=== PATIENT | female | born 1955 | race Hispanic/Latino ===

== ENCOUNTER 2018-11-11 09:50 | Emergency (ER) | payer OTHER ==
[2018-11-11 11:48] LABS: BASOPHILS % (AUTO) 1.3 % (0.0-5.0); EOSINOPHILS % (AUTO) 1.1 % (0.0-8.0); HEMATOCRIT 39.4 % (36-48); LYMPHOCYTES % (AUTO) 23.7 % (21.0-51.0); MEAN CORPUSCULAR HEMOGLOBIN 28.4 pg (27.0-33.0); MEAN CORPUSCULAR HGB CONC 33.2 g/dL (32.0-36.0); MEAN CORPUSCULAR VOLUME 85.5 fL (79-99); MONOCYTES % (AUTO) 7.2 % (3.0-13.0); NEUTROPHILS % (AUTO) 66.7 % (40.0-77.0); PLATELET COUNT (AUTO) 307 K/uL (130-400); RED BLOOD CELL COUNT(AUTO) 4.61 MIL/uL (4.00-5.50); RED CELL DISTRIBUTION WIDTH 15.7 % (11.0-15.5); WHITE BLOOD COUNT (AUTO) 10.5 K/uL (4.8-10.8)
[2018-11-11 11:54] LABS: CREATININE 0.6 mg/dL (0.5-1.5); POTASSIUM 3.8 mmol/L (3.5-5.1)
[2018-11-11 12:04] LABS: ALBUMIN 3.3 g/dL (3.5-5.0); BILIRUBIN,TOTAL 0.5 mg/dL (0.2-1.0); INR 0.89 (0.85-1.15); PARTIAL THROMBOPLASTIN TIME 29.2 SEC (26.3-35.5); PROTHROMBIN TIME 9.4 SEC (9.6-11.6); TOTAL PROTEIN, SERUM 7.1 g/dL (6.0-8.3)
[2018-11-11 12:49] LABS: APPEARANCE,URINE Clear (CLEAR); BILIRUBIN,URINE Negative (NEGATIVE); COLOR,URINE Yellow (YELLOW); GLUCOSE, URINE (UA) Negative (NEGATIVE); KETONES,URINE Negative (NEGATIVE); LEUKOCYTE ESTERASE ,URINE Negative (NEGATIVE); NITRATE,URINE Negative (NEGATIVE); OCCULT BLOOD,URINE Negative (NEGATIVE); PROTEIN,URINE Negative (NEGATIVE); UROBILINOGEN,URINE 0.2 mg/dL (0.2-1.0)
== END 2018-11-11 12:58 | disposition home or self-care (01) ==
LOC: EDH 09:50
DX: N95.0 Postmenopausal bleeding (principal); E11.9 Type 2 diabetes mellitus without complications; E78.5 Hyperlipidemia, unspecified; I10 Essential (primary) hypertension; Z90.49 Acquired absence of other specified parts of digestive tract
CPT/HCPCS: 36415; 76856; 80053; 81003; 84702; 85025; 85610; 85730

== ENCOUNTER 2019-07-18 11:13 | Inpatient (IN) | payer OTHER ==
[~2019-07-18] VITALS: Ht 154.9 cm; Wt 106.3 kg
[2019-07-18 11:47] LABS: CREATININE 0.7 mg/dL (0.5-1.5); POTASSIUM 3.7 mmol/L (3.5-5.1)
[2019-07-18 11:49] LABS: BASOPHILS % (AUTO) 0.5 % (0.0-5.0); EOSINOPHILS % (AUTO) 0.6 % (0.0-8.0); HEMATOCRIT 36.7 % (36-48); LYMPHOCYTES % (AUTO) 18.2 % (21.0-51.0); MEAN CORPUSCULAR HEMOGLOBIN 24.7 pg (27.0-33.0); MEAN CORPUSCULAR HGB CONC 30.8 g/dL (32.0-36.0); MEAN CORPUSCULAR VOLUME 80.1 fL (79-99); MONOCYTES % (AUTO) 7.4 % (3.0-13.0); NEUTROPHILS % (AUTO) 73.1 % (40.0-77.0); PLATELET COUNT (AUTO) 390 K/uL (130-400); RED BLOOD CELL COUNT(AUTO) 4.58 MIL/uL (4.00-5.50); RED CELL DISTRIBUTION WIDTH 16.9 % (11.0-15.5)
[2019-07-18 11:55] LABS: INR 0.93 (0.85-1.15); PROTHROMBIN TIME 9.8 SEC (9.6-11.6)
[2019-07-18] MEDS ORDERED: SODIUM CHLORIDE 0.9% 500ML 500 ML IV ONE (12:12)
[2019-07-18] MEDS ORDERED: MECLIZINE HCL 25 MG TABLET ONE (13:25)
[2019-07-18] MEDS ORDERED: SODIUM CHLORIDE 0.9% 1000ML 1,000 ML IV ONE (13:26)
[2019-07-18] MEDS ORDERED: ONDANSETRON HCL 4 MG/2 ML VIAL IVP PRN (15:15)
[2019-07-18] MEDS ORDERED: ACETAMINOPHEN 325 MG TAB PO PRN (15:15)
[2019-07-18] MEDS ORDERED: SODIUM CHLORIDE 0.9% 1000ML 1,000 ML IV SCH (19:00)
[2019-07-18 19:45] VITALS: BP 151/80
[2019-07-18] MEDS: SODIUM CHLORIDE 0.9% 1000ML 1,000 ML IV SCH (20:00)
[2019-07-18] MEDS: FAMOTIDINE/PF 20 MG/2 ML VIAL IV SCH (22:00)
[2019-07-19] VITALS: BP 144/69
[2019-07-19] MEDS ORDERED: METH500T6 PO ×2 (01:44)
[2019-07-19] MEDS ORDERED: METF-446 PO ×2 (01:44)
[2019-07-19] MEDS ORDERED: AMLO5TAB9 PO ×2 (01:44)
[2019-07-19] MEDS ORDERED: ASCO-512 PO ×2 (01:44)
[2019-07-19] MEDS ORDERED: METO-391 PO ×2 (01:44)
[2019-07-19 04:00] VITALS: BP 145/80
[2019-07-19] MEDS: SODIUM CHLORIDE 0.9% 1000ML 1,000 ML IV SCH ×2 (04:35→20:19)
[2019-07-19 05:52] LABS: BASOPHILS % (AUTO) 0.5 % (0.0-5.0); EOSINOPHILS % (AUTO) 1.5 % (0.0-8.0); HEMATOCRIT 33.5 % (36-48); LYMPHOCYTES % (AUTO) 24.8 % (21.0-51.0); MEAN CORPUSCULAR HEMOGLOBIN 24.7 pg (27.0-33.0); MEAN CORPUSCULAR HGB CONC 30.7 g/dL (32.0-36.0); MEAN CORPUSCULAR VOLUME 80.3 fL (79-99); MONOCYTES % (AUTO) 8.7 % (3.0-13.0); NEUTROPHILS % (AUTO) 64.1 % (40.0-77.0); PLATELET COUNT (AUTO) 373 K/uL (130-400); RED BLOOD CELL COUNT(AUTO) 4.17 MIL/uL (4.00-5.50); RED CELL DISTRIBUTION WIDTH 17.1 % (11.0-15.5)
[2019-07-19 06:01] LABS: CREATININE 0.7 mg/dL (0.5-1.5)
--- NOTE | 2019-07-19 06:20 | NUR ---
Paged Dr. Fitzgerald regarding potassium level of 3. Pending call back
[2019-07-19 07:55] VITALS: BP 169/88
[2019-07-19] MEDS: FAMOTIDINE/PF 20 MG/2 ML VIAL IV SCH ×2 (08:37→20:19)
[2019-07-19] MEDS: ENOXAPARIN SODIUM 30 MG/0.3 ML SQ SCH (08:38)
[2019-07-19] MEDS ORDERED: POTASSIUM CHLORIDE 20MEQ/100ML 100 ML IV PRN (09:45)
[2019-07-19] MEDS ORDERED: POTASSIUM CHLORIDE 10% ELIXIR 20 MEQ/15 ML UDCUP PO PRN (09:45)
[2019-07-19 11:18] VITALS: BP 151/65
[2019-07-19] MEDS ORDERED: LIDOCAINE HCL-MPF 1% 2ML VIAL ONE (14:40)
[2019-07-19] MEDS: POTASSIUM CHLORIDE 20MEQ/100ML 100 ML IV PRN ×2 (14:51→20:19)
[2019-07-19] MEDS: POTASSIUM CHLORIDE 20 MEQ ERTAB PO PRN (14:54)
--- NOTE | 2019-07-19 15:40 | NUR ---
DR. TOM IN TO SEE PT. REMOVED SUTURES FROM SURGICAL WOUND OF 1 MONTH AGO. 1 SMALL AREA OPEN AND WAS COVERED WITH 4X4 BY WOUND CARE NURSE.
[2019-07-19 16:35] VITALS: BP 180/98
--- NOTE | 2019-07-19 17:00 | NUR ---
[facility] CONSULT PATIENT ASSESSED REQUESTED: PATIENT PRESENTS WITH DEHISCED SURGICAL WOUND TO LEFT SIDE ABDOMEN; REMAINING SUTURES REMOVED BY DR. Chiquis TOM WITHOUT INCIDENT; [facility] RECOMMENDATIONS SUBMITTED. Addendum: 07/20/19 at 0839 by JER HEART LVN LVN W Amended: Links added.
--- NOTE | 2019-07-19 17:47 | NUR ---
INITIAL Patient lives with spouse. Emergency contact are daughters: Dee Kenneth, [phone] and Susy Morgannandez, [phone]. No home services. DME: glucometer (no insulin) and BPM. Patient is able to complete ADL's independently and drives. PCP is Dr. Jose Cooper. Pharmacy is [facility] located in [place]. DCP is home. Addendum: 07/19/19 at 1749 by DANYA ROSAS SS Amended: Links added.
[2019-07-19 20:00] VITALS: BP 144/78
[2019-07-20] VITALS: BP 122/67
[2019-07-20 04:00] VITALS: BP 145/72
[2019-07-20 06:02] LABS: BASOPHILS % (AUTO) 0.7 % (0.0-5.0); EOSINOPHILS % (AUTO) 2.6 % (0.0-8.0); HEMATOCRIT 33.2 % (36-48); LYMPHOCYTES % (AUTO) 33.8 % (21.0-51.0); MEAN CORPUSCULAR HEMOGLOBIN 25.1 pg (27.0-33.0); MEAN CORPUSCULAR HGB CONC 31.3 g/dL (32.0-36.0); MEAN CORPUSCULAR VOLUME 80.2 fL (79-99); MONOCYTES % (AUTO) 9.9 % (3.0-13.0); NEUTROPHILS % (AUTO) 52.7 % (40.0-77.0); PLATELET COUNT (AUTO) 364 K/uL (130-400); RED BLOOD CELL COUNT(AUTO) 4.14 MIL/uL (4.00-5.50); RED CELL DISTRIBUTION WIDTH 17.2 % (11.0-15.5); WHITE BLOOD COUNT (AUTO) 7.6 K/uL (4.8-10.8)
[2019-07-20 06:20] LABS: ALBUMIN 2.6 g/dL (3.5-5.0); BILIRUBIN,TOTAL 0.6 mg/dL (0.2-1.0); CREATININE 0.7 mg/dL (0.5-1.5); POTASSIUM 3.5 mmol/L (3.5-5.1); TOTAL PROTEIN, SERUM 6.6 g/dL (6.0-8.3)
[2019-07-20] MEDS: POTASSIUM CHLORIDE 20 MEQ ERTAB PO PRN ×2 (07:00→10:00)
[2019-07-20 07:15] VITALS: BP 156/84
[2019-07-20] MEDS: SODIUM CHLORIDE 0.9% 1000ML 1,000 ML IV SCH ×2 (07:15→20:02)
[2019-07-20] MEDS: METOPROLOL SUCCINATE 50 MG TAB.SR.24H PO SCH (09:00)
[2019-07-20] MEDS: AMLODIPINE BESYLATE 5 MG TAB PO SCH (09:00)
[2019-07-20] MEDS: FAMOTIDINE/PF 20 MG/2 ML VIAL IV SCH ×2 (09:58→20:02)
[2019-07-20] MEDS: ASCORBIC ACID 500 MG TAB PO SCH (09:59)
[2019-07-20] MEDS: ENOXAPARIN SODIUM 30 MG/0.3 ML SQ SCH (10:00)
[2019-07-20 12:29] VITALS: BP 138/83
[2019-07-20 16:11] VITALS: BP 157/64
[2019-07-20 20:01] VITALS: BP 150/71
[2019-07-21] VITALS: BP 118/61
[2019-07-21 03:48] VITALS: BP 131/69
[2019-07-21 05:22] LABS: BASOPHILS % (AUTO) 0.5 % (0.0-5.0); EOSINOPHILS % (AUTO) 2.3 % (0.0-8.0); HEMATOCRIT 32.6 % (36-48); MEAN CORPUSCULAR HEMOGLOBIN 24.8 pg (27.0-33.0); MEAN CORPUSCULAR VOLUME 79.9 fL (79-99); MONOCYTES % (AUTO) 8.7 % (3.0-13.0); NEUTROPHILS % (AUTO) 62.3 % (40.0-77.0); PLATELET COUNT (AUTO) 347 K/uL (130-400); RED BLOOD CELL COUNT(AUTO) 4.08 MIL/uL (4.00-5.50); RED CELL DISTRIBUTION WIDTH 17.1 % (11.0-15.5); WHITE BLOOD COUNT (AUTO) 8.7 K/uL (4.8-10.8)
[2019-07-21 05:43] LABS: ALBUMIN 2.6 g/dL (3.5-5.0); BILIRUBIN,TOTAL 0.4 mg/dL (0.2-1.0); CREATININE 0.6 mg/dL (0.5-1.5); POTASSIUM 3.3 mmol/L (3.5-5.1); TOTAL PROTEIN, SERUM 6.3 g/dL (6.0-8.3)
[2019-07-21] MEDS: POTASSIUM CHLORIDE 20 MEQ ERTAB PO PRN ×3 (06:50→12:40)
[2019-07-21 08:00] VITALS: BP 131/55
[2019-07-21] MEDS: AMLODIPINE BESYLATE 5 MG TAB PO SCH (09:00)
[2019-07-21] MEDS: METOPROLOL SUCCINATE 50 MG TAB.SR.24H PO SCH (09:00)
[2019-07-21] MEDS: FAMOTIDINE/PF 20 MG/2 ML VIAL IV SCH ×2 (09:00→21:00)
[2019-07-21] MEDS: ASCORBIC ACID 500 MG TAB PO SCH (09:39)
[2019-07-21] MEDS: ENOXAPARIN SODIUM 30 MG/0.3 ML SQ SCH (09:41)
[2019-07-21] MEDS: SODIUM CHLORIDE 0.9% 1000ML 1,000 ML IV SCH (09:55)
[2019-07-21 11:39] VITALS: BP 127/75
[2019-07-21] MEDS: GUAIFENESIN/DEXTROMETHORPHAN 1 EACH TAB.SR.12H PO SCH ×2 (12:40→20:56)
[2019-07-21 16:00] VITALS: BP 126/88
[2019-07-21 20:00] VITALS: BP 149/77
--- NOTE | 2019-07-21 20:56 | NUR ---
MEDS SHIFT ASSESSMENT DONE, PLEASE REFER TO CHART. DUE MEDS ADMINISTERED, TOLERATED WELL. PT STILL REFUSING IVP RE-INSERTION. SIGNED REFUSAL IN CHART NOTED. PT VERBALIZES THAT TOLD HER SHE WILL BE DISCHARGED IN AM. WILL REFER TO IT NETWORK ADMINISTRATOR CARRY OUT CLERK AND SHELF STOCKER IV MEDS. Addendum: 07/21/19 at 2208 by ESTHER WATSON RN RN Amended: Links added.
--- NOTE | 2019-07-21 21:55 | NUR ---
PAGED [employer] FELT CEMENTER FOR HOSPITALIST, PAGED VIA ANSWERING SERVICE FOR REFERRAL OF IVF AND IV MEDS. AWAITING CALL BACK.
--- NOTE | 2019-07-21 22:04 | NUR ---
ORDER AJ, BODY AND FENDER WORKER BODY LINER FOR HOSPITALIST, ON THE FLOOR AND MAKING ROUNDS. REFERRED PT'S IVF AND IV MEDS PT SIGNED REFUSAL FOR IV RE-INSERTION. NEW MED ORDER GIVEN, PLEASE REFER TO CPOE.
[2019-07-22] VITALS: BP 132/65
--- NOTE | 2019-07-22 01:54 | NUR ---
ROUNDS PT RESTING WELL, NO COMPLAINTS VERBALIZED. SCD'S RE-STARTED PT USED THE BATHROOM. KEPT RESTED AND COMFORTABLE. ENCOURAGED TO REST AND SLEEP. FAMILY AT BEDSIDE.
[2019-07-22 04:00] VITALS: BP 133/71
--- NOTE | 2019-07-22 04:59 | NUR ---
ROUNDS PT RESTING WELL, FAIRLY ASLEEP WITH RESPIRATIONS EVEN AND UNLABORED. NO NOTED DISTRESS. KEPT UNDISTURBED FOR NOW. FOR MORE CARE.
[2019-07-22 06:33] LABS: BASOPHILS % (AUTO) 0.4 % (0.0-5.0); EOSINOPHILS % (AUTO) 2.6 % (0.0-8.0); HEMATOCRIT 33.2 % (36-48); LYMPHOCYTES % (AUTO) 26.5 % (21.0-51.0); MEAN CORPUSCULAR HEMOGLOBIN 24.9 pg (27.0-33.0); MEAN CORPUSCULAR VOLUME 80.2 fL (79-99); MONOCYTES % (AUTO) 7.9 % (3.0-13.0); NEUTROPHILS % (AUTO) 62.3 % (40.0-77.0); PLATELET COUNT (AUTO) 353 K/uL (130-400); RED BLOOD CELL COUNT(AUTO) 4.14 MIL/uL (4.00-5.50); RED CELL DISTRIBUTION WIDTH 17.3 % (11.0-15.5); WHITE BLOOD COUNT (AUTO) 9.4 K/uL (4.8-10.8)
[2019-07-22 06:48] LABS: ALBUMIN 2.7 g/dL (3.5-5.0); BILIRUBIN,TOTAL 0.3 mg/dL (0.2-1.0); CREATININE 0.6 mg/dL (0.5-1.5); POTASSIUM 3.8 mmol/L (3.5-5.1); TOTAL PROTEIN, SERUM 6.6 g/dL (6.0-8.3)
[2019-07-22 07:21] VITALS: BP 155/75
[2019-07-22] MEDS: ASCORBIC ACID 500 MG TAB PO SCH (08:29)
[2019-07-22] MEDS: GUAIFENESIN/DEXTROMETHORPHAN 1 EACH TAB.SR.12H PO SCH (08:29)
[2019-07-22] MEDS: ENOXAPARIN SODIUM 30 MG/0.3 ML SQ SCH (08:31)
[2019-07-22] MEDS: METOPROLOL SUCCINATE 50 MG TAB.SR.24H PO SCH (08:33)
[2019-07-22] MEDS: AMLODIPINE BESYLATE 5 MG TAB PO SCH (08:33)
[2019-07-22] MEDS ORDERED: FAMOTIDINE 20MG TAB 20 MG TAB PO SCH (09:00)
[2019-07-22 10:31] VITALS: BP 120/65
[2019-07-22] MEDS ORDERED: GUAI600T50 PO ×2 (12:44)
[2019-07-22 15:48] VITALS: BP 133/66
--- NOTE | 2019-07-22 17:40 | NUR ---
Dressing to abdomen removed, site cleansed with normal saline and packed with iodoform packing 1 cm in length. Packing covered with gauze and medipore tape. Patient tolerated dressing with minimal discomfort. Spouse shown and explained how to dress wound while witnessing dressing change and instructed on importance of thorough handwashing before and after wound care. Patient and spouse verbalized understanding. Discharge instructions, follow up recommendations and prescribed medications reviewed. Patient instructed to contact [facility] to set up appointments within a week. Prescription for mucinex given to patient. Patient assisted to hospital entrance via wheelchair by valentine Haley.
== END 2019-07-22 17:39 | disposition home or self-care (01) | DRG 392 ==
LOC: EDH 11:13 → INTOOBSV 13:20 → OBSVTOIN 13:20 → EDHIP 13:20 → 3CH 20:01
PROVIDERS: ADMIT Family Medicine; ATTEND Family Medicine
DX: K52.9 Noninfective gastroenteritis and colitis, unspecified (principal); T81.31XA Disruption of external operation (surgical) wound, not elsewhere classified, initial encounter; E86.0 Dehydration; I10 Essential (primary) hypertension; Z90.710 Acquired absence of both cervix and uterus; Z85.42 Personal history of malignant neoplasm of other parts of uterus; E11.9 Type 2 diabetes mellitus without complications; E78.5 Hyperlipidemia, unspecified; Z90.49 Acquired absence of other specified parts of digestive tract; R55 Syncope and collapse; Z83.3 Family history of diabetes mellitus; Y83.8 Other surgical procedures as the cause of abnormal reaction of the patient, or of later complication, without mention of misadventure at the time of the procedure; Y92.89 Other specified places as the place of occurrence of the external cause; T36.8X5A Adverse effect of other systemic antibiotics, initial encounter
CPT/HCPCS: 36415; 74176; 76700; 80048; 80053; 82948; 83630; 84484; 85025; 85610; 85730; 87040; 87046; 87070; 87076; 87077; 87186; 87507; 93005; G0378; J1650; J3480; J3490; J7030; J7040

== ENCOUNTER 2019-07-31 09:00 | Outpatient (CLI) | payer OTHER ==
[~2019-07-31 09:00] MED LIST: AMLO5TAB9 PO; ASCO-512 PO; GUAI600T50 PO; METF-446 PO; METH500T6 PO; METO-391 PO
[2019-07-31 11:51] VITALS: BP 145/84
== END 2019-07-31 16:18 | disposition home or self-care (01) ==
LOC: WHH 09:00
PROVIDERS: ATTEND Surgery
DX: T81.89XD Other complications of procedures, not elsewhere classified, subsequent encounter (principal); E11.9 Type 2 diabetes mellitus without complications; I10 Essential (primary) hypertension; Z90.49 Acquired absence of other specified parts of digestive tract; Z90.710 Acquired absence of both cervix and uterus; Y83.8 Other surgical procedures as the cause of abnormal reaction of the patient, or of later complication, without mention of misadventure at the time of the procedure
CPT/HCPCS: 82948; G0463

== ENCOUNTER 2019-08-07 10:36 | Emergency (ER) | payer OTHER ==
[~2019-08-07 10:36] MED LIST changes: -ASCO-512 PO; +ASCO500T92 PO
[2019-08-07 11:17] LABS: BASOPHILS % (AUTO) 0.4 % (0.0-5.0); EOSINOPHILS % (AUTO) 0.7 % (0.0-8.0); HEMATOCRIT 36.2 % (36-48); LYMPHOCYTES % (AUTO) 17.8 % (21.0-51.0); MEAN CORPUSCULAR HEMOGLOBIN 24.7 pg (27.0-33.0); MEAN CORPUSCULAR HGB CONC 31.5 g/dL (32.0-36.0); MEAN CORPUSCULAR VOLUME 78.5 fL (79-99); MONOCYTES % (AUTO) 6.7 % (3.0-13.0); PLATELET COUNT (AUTO) 454 K/uL (130-400); RED BLOOD CELL COUNT(AUTO) 4.61 MIL/uL (4.00-5.50); RED CELL DISTRIBUTION WIDTH 16.8 % (11.0-15.5); WHITE BLOOD COUNT (AUTO) 11.3 K/uL (4.8-10.8)
[2019-08-07 11:25] LABS: CREATININE 0.6 mg/dL (0.5-1.5); POTASSIUM 3.3 mmol/L (3.5-5.1)
[2019-08-07 11:30] LABS: ALBUMIN 3.2 g/dL (3.5-5.0); BILIRUBIN,TOTAL 0.4 mg/dL (0.2-1.0); TOTAL PROTEIN, SERUM 7.6 g/dL (6.0-8.3)
[2019-08-07] MEDS ORDERED: SODIUM CHLORIDE 0.9% 1000ML 1,000 ML IV ONE (12:09)
[2019-08-07] MEDS ORDERED: KETOROLAC TROMETHAMINE 15MG/ML ONE (12:49)
== END 2019-08-07 14:08 | disposition home or self-care (01) ==
LOC: EDH 10:36
DX: R10.84 Generalized abdominal pain (principal); R19.7 Diarrhea, unspecified; R42 Dizziness and giddiness; E11.9 Type 2 diabetes mellitus without complications; E78.5 Hyperlipidemia, unspecified; I10 Essential (primary) hypertension; Z90.49 Acquired absence of other specified parts of digestive tract; Z90.710 Acquired absence of both cervix and uterus
CPT/HCPCS: 36415; 74176; 80053; 85025; 96361; 96374; 99284; J1885; J7030

== ENCOUNTER 2019-08-08 21:30 | Emergency (ER) | payer OTHER ==
[2019-08-08] MEDS ORDERED: ALBUTEROL SULFATE 0.083% 2.5 MG/3 ML INH IH ONE (22:38)
[2019-08-08] MEDS ORDERED: ONDANSETRON HCL 4 MG/2 ML VIAL ONE (22:45)
[2019-08-08] MEDS ORDERED: LEVOFLOXACIN 500 MG/D5W 100 ML 100 ML ONE (22:46)
[2019-08-08] MEDS ORDERED: SODIUM CHLORIDE 0.9% 1000ML 1,000 ML IV ONE (22:47)
[2019-08-08] MEDS ORDERED: FAMOTIDINE/PF 20 MG/2 ML VIAL IV ONE (22:47)
[2019-08-08 22:49] LABS: BASOPHILS % (AUTO) 0.5 % (0.0-5.0); HEMATOCRIT 35.9 % (36-48); LYMPHOCYTES % (AUTO) 25.5 % (21.0-51.0); MEAN CORPUSCULAR HEMOGLOBIN 24.6 pg (27.0-33.0); MEAN CORPUSCULAR HGB CONC 30.9 g/dL (32.0-36.0); MEAN CORPUSCULAR VOLUME 79.4 fL (79-99); NEUTROPHILS % (AUTO) 64.8 % (40.0-77.0); PLATELET COUNT (AUTO) 428 K/uL (130-400); RED BLOOD CELL COUNT(AUTO) 4.52 MIL/uL (4.00-5.50); RED CELL DISTRIBUTION WIDTH 17.1 % (11.0-15.5); WHITE BLOOD COUNT (AUTO) 10.7 K/uL (4.8-10.8)
[2019-08-08 23:06] LABS: INR 0.92 (0.85-1.15); PARTIAL THROMBOPLASTIN TIME 26.5 SEC (26.3-35.5)
[2019-08-08 23:15] LABS: BILIRUBIN,TOTAL 0.3 mg/dL (0.2-1.0); CREATININE 0.7 mg/dL (0.5-1.5); TOTAL PROTEIN, SERUM 7.3 g/dL (6.0-8.3)
[2019-08-08 23:17] LABS: POTASSIUM 2.9 mmol/L (3.5-5.1)
== END 2019-08-09 01:22 | disposition home or self-care (01) ==
LOC: EDH 21:30
DX: J40 Bronchitis, not specified as acute or chronic (principal); R10.13 Epigastric pain; E11.9 Type 2 diabetes mellitus without complications; I10 Essential (primary) hypertension; E78.5 Hyperlipidemia, unspecified; Z90.49 Acquired absence of other specified parts of digestive tract; Z90.710 Acquired absence of both cervix and uterus
CPT/HCPCS: 36415; 71046; 80053; 84484; 85025; 85610; 85730; 93005; 94640; 96365; 96375; 99285; J1956; J2405; J3490; J7030; 96366

== ENCOUNTER 2020-09-01 15:36 | Emergency (ER) | payer MEDICARE, OTHER ==
[~2020-09-01 15:36] MED LIST changes: +AMLO-257 PO; -AMLO5TAB9 PO; +METH-811 PO; -METH500T6 PO
[2020-09-01 17:04] LABS: BASOPHILS % (AUTO) 0.5 % (0.0-5.0); EOSINOPHILS % (AUTO) 1.8 % (0.0-8.0); HEMATOCRIT 37.9 % (36-48); LYMPHOCYTES % (AUTO) 22.8 % (21.0-51.0); MEAN CORPUSCULAR HEMOGLOBIN 26.2 pg (27.0-33.0); MEAN CORPUSCULAR HGB CONC 32.2 g/dL (32.0-36.0); MEAN CORPUSCULAR VOLUME 81.5 fL (79-99); MONOCYTES % (AUTO) 6.2 % (3.0-13.0); NEUTROPHILS % (AUTO) 68.5 % (40.0-77.0); PLATELET COUNT (AUTO) 404 K/uL (130-400); RED BLOOD CELL COUNT(AUTO) 4.65 MIL/uL (4.00-5.50); WHITE BLOOD COUNT (AUTO) 12.9 K/uL (4.8-10.8)
[2020-09-01 17:15] LABS: CREATININE 0.7 mg/dL (0.5-1.5); POTASSIUM 3.7 mmol/L (3.5-5.1)
[2020-09-01 17:18] LABS: INR 0.92 (0.85-1.15); PROTHROMBIN TIME 10.1 SEC (9.6-11.6)
[2020-09-01 17:19] LABS: ALBUMIN 3.6 g/dL (3.5-5.0); BILIRUBIN,TOTAL 0.4 mg/dL (0.2-1.0); TOTAL PROTEIN, SERUM 7.9 g/dL (6.0-8.3)
[2020-09-01 17:20] LABS: PARTIAL THROMBOPLASTIN TIME 26.1 SEC (26.3-35.5)
[2020-09-01 17:25] LABS: B-TYPE NATRIURETIC PEPTIDE 14 pg/mL (0-100)
[2020-09-01] MEDS ORDERED: ONDANSETRON HCL 4 MG/2 ML VIAL ONE (19:44)
[2020-09-01] MEDS ORDERED: KETOROLAC TROMETHAMINE 15MG/ML ONE (19:45)
[2020-09-01 19:56] LABS: APPEARANCE,URINE Clear (CLEAR); BILIRUBIN,URINE Negative (NEGATIVE); COLOR,URINE Yellow (YELLOW); GLUCOSE, URINE (UA) Negative (NEGATIVE); KETONES,URINE Negative (NEGATIVE); LEUKOCYTE ESTERASE ,URINE Negative (NEGATIVE); NITRATE,URINE Negative (NEGATIVE); OCCULT BLOOD,URINE Negative (NEGATIVE); PROTEIN,URINE Negative (NEGATIVE); UROBILINOGEN,URINE 0.2 mg/dL (0.2-1.0)
== END 2020-09-01 20:23 | disposition home or self-care (01) ==
LOC: EDH 15:36
DX: S39.012A Strain of muscle, fascia and tendon of lower back, initial encounter (principal); E11.9 Type 2 diabetes mellitus without complications; E78.5 Hyperlipidemia, unspecified; I10 Essential (primary) hypertension; Z90.49 Acquired absence of other specified parts of digestive tract; Z90.710 Acquired absence of both cervix and uterus; X58.XXXA Exposure to other specified factors, initial encounter; Y93.89 Activity, other specified; Y92.89 Other specified places as the place of occurrence of the external cause; Y99.8 Other external cause status
CPT/HCPCS: 36415; 71045; 74176; 80053; 81003; 82550; 83690; 83880; 84484; 85025; 85610; 85730; 93005; 96374; 96375; 99285; J1885; J2405

== ENCOUNTER 2021-08-08 07:55 | Observation (INO) | payer MEDICARE, OTHER ==
[~2021-08-08] VITALS: Ht 152.4 cm; Wt 75.4 kg
[2021-08-08 08:28] LABS: BASOPHILS % (AUTO) 0.5 % (0.0-5.0); EOSINOPHILS % (AUTO) 2.3 % (0.0-8.0); HEMATOCRIT 39.9 % (36-48); MEAN CORPUSCULAR HEMOGLOBIN 27.7 pg (27.0-33.0); MEAN CORPUSCULAR HGB CONC 32.1 g/dL (32.0-36.0); MEAN CORPUSCULAR VOLUME 86.4 fL (79-99); MONOCYTES % (AUTO) 7.1 % (3.0-13.0); NEUTROPHILS % (AUTO) 63.8 % (40.0-77.0); PLATELET COUNT (AUTO) 352 K/uL (130-400); RED BLOOD CELL COUNT(AUTO) 4.62 MIL/uL (4.00-5.50); RED CELL DISTRIBUTION WIDTH 15.3 % (11.0-15.5)
[2021-08-08] MEDS ORDERED: NAPROXEN 500 MG TABLET PO SCH (08:30)
[2021-08-08] MEDS ORDERED: ACETAMINOPHEN 500 MG TABLET PO SCH (08:30)
[2021-08-08 09:25] LABS: BILIRUBIN,TOTAL 0.5 mg/dL (0.2-1.0); CREATININE 0.5 mg/dL (0.5-1.5); POTASSIUM 5.2 mmol/L (3.5-5.1); TOTAL PROTEIN, SERUM 7.6 g/dL (6.0-8.3)
[2021-08-08] MEDS ORDERED: IOHEXOL-350 75 ML VIAL IV ONE (10:30)
[2021-08-08 11:57] LABS: APPEARANCE,URINE Clear (CLEAR); BILIRUBIN,URINE Negative (NEGATIVE); COLOR,URINE Yellow (YELLOW); GLUCOSE, URINE (UA) Negative (NEGATIVE); KETONES,URINE Negative (NEGATIVE); LEUKOCYTE ESTERASE ,URINE Negative (NEGATIVE); NITRATE,URINE Negative (NEGATIVE); OCCULT BLOOD,URINE Negative (NEGATIVE); PH,URINE 5.5 (5.0-8.0); PROTEIN,URINE Negative (NEGATIVE); UROBILINOGEN,URINE 0.2 mg/dL (0.2-1.0)
[2021-08-08 11:58] LABS: AMPHET/METH SCREEN,URINE NEGATIVE (NEGATIVE); BARBITURATE SCREEN, URINE NEGATIVE (NEGATIVE); BENZODIAZEPINES SCREEN,URINE NEGATIVE (NEGATIVE); CANNABINOID SCREEN,URINE NEGATIVE (NEGATIVE); COCAINE SCREEN,URINE NEGATIVE (NEGATIVE); OPIATE SCREEN,URINE NEGATIVE (NEGATIVE); PHENCYCLIDINE SCREEN,URINE NEGATIVE (NEGATIVE)
[2021-08-08 12:09] LABS: BACTERIA,URINE Rare /HPF (None Seen); RBC,URINE None Seen /HPF (0-1); SQUAMOUS EPITHELIAL CELL,UR 0-2 /HPF (0-2); WBC,URINE 0-1 /HPF (0-1)
[2021-08-08] MEDS ORDERED: 0.9%NACL 1000ML 1,000 ML IV SCH (12:30)
[2021-08-08] MEDS ORDERED: ZOSYN 3.375GM +NS 50ML IV SCH (13:00)
[2021-08-08] MEDS ORDERED: ACETAMINOPHEN 325 MG TAB PO PRN (13:30)
[2021-08-08] MEDS ORDERED: LABETALOL 20MG SYG IV PRN (13:30)
[2021-08-08] MEDS ORDERED: ACETAMINOPHEN 650 MG SUPPOSITORY RC PRN (13:30)
[2021-08-08] MEDS ORDERED: CLONIDINE HCL 0.1 MG TABLET PO PRN (13:30)
[2021-08-08] MEDS ORDERED: ONDANSETRON 4MG INJ IVP PRN (13:30)
[2021-08-08] MEDS ORDERED: 0.9%NACL 1000ML 1,000 ML IV ONE (15:04)
[2021-08-08] MEDS ORDERED: 0.9%NACL 50ML 50 ML IV ONE ×2 (15:05→20:12)
[2021-08-08] MEDS: ZOSYN 3.375GM +NS 50ML IV SCH ×2 (15:23→20:14)
[2021-08-08] MEDS: MORPHINE 2 MG SYG IVP PRN (15:23)
[2021-08-08] MEDS: INSULIN HUMULIN R 100 UNIT/ML 3ML SQ SCH ×2 (19:49→20:09)
[2021-08-08] MEDS: LACTATED RINGERS 1000ML 1,000 ML IV SCH ×2 (20:08→20:11)
[2021-08-08 22:45] VITALS: BP 167/74
[2021-08-08] MEDS ORDERED: METF-446 PO (23:14)
[2021-08-08] MEDS ORDERED: METO-391 PO (23:14)
[2021-08-08] MEDS ORDERED: ASCO500T19 PO (23:14)
[2021-08-08] MEDS ORDERED: AMLO-257 PO (23:14)
[2021-08-09] MEDS: LACTATED RINGERS 1000ML 1,000 ML IV SCH (03:24)
[2021-08-09] MEDS: ZOSYN 3.375GM +NS 50ML IV SCH ×3 (03:24→21:04)
[2021-08-09 03:56] LABS: HEMATOCRIT 35.2 % (36-48); MEAN CORPUSCULAR HEMOGLOBIN 27.6 pg (27.0-33.0); MEAN CORPUSCULAR HGB CONC 32.1 g/dL (32.0-36.0); MEAN CORPUSCULAR VOLUME 86.1 fL (79-99); RED BLOOD CELL COUNT(AUTO) 4.09 MIL/uL (4.00-5.50); RED CELL DISTRIBUTION WIDTH 15.6 % (11.0-15.5); WHITE BLOOD COUNT (AUTO) 8.8 K/uL (4.8-10.8)
[2021-08-09 04:00] VITALS: BP 151/76
[2021-08-09 05:30] LABS: CREATININE 0.5 mg/dL (0.5-1.5); MAGNESIUM 1.6 mg/dL (1.80-2.40); PHOSPHORUS 3.5 mg/dL (2.5-4.9); POTASSIUM 3.4 mmol/L (3.5-5.1); THYROID STIMULATING HORMONE 1.63 uIU/mL (0.36-3.74)
[2021-08-09] MEDS ORDERED: MAGNESIUM 2GM PREMIX 50ML 50 ML IV PRN (06:00)
[2021-08-09] MEDS: INSULIN HUMULIN R 100 UNIT/ML 3ML SQ SCH ×4 (06:30→21:00)
[2021-08-09 08:03] VITALS: BP 155/85
[2021-08-09] MEDS: METOPROLOL SUCCINATE 50 MG TAB.SR.24H PO SCH (09:52)
[2021-08-09] MEDS: AMLODIPINE 5 MG TAB PO SCH (09:52)
[2021-08-09] MEDS: ENOXAPARIN SODIUM 40 MG/0.4 ML SYRINGE SQ SCH (09:53)
[2021-08-09] MEDS: MORPHINE 2 MG SYG IVP PRN (09:59)
[2021-08-09] MEDS: POTASSIUM CHLORIDE 10MEQ/100ML 100 ML IV PRN ×2 (10:00→12:42)
[2021-08-09 12:05] VITALS: BP 154/71
[2021-08-09] MEDS: GUAIFENESIN-DM 200/20 MG 10 ML PO PRN ×2 (12:43→21:04)
[2021-08-09] MEDS ORDERED: FUROSEMIDE 20MG VIAL IV ONE (13:00)
[2021-08-09] MEDS ORDERED: IPRATROPIUM/ALBUTEROL SULFATE 3 ML SOLUTION IH PRN (15:00)
[2021-08-09 15:41] VITALS: BP 145/69
[2021-08-09] MEDS ORDERED: KCL 20 MEQ ERTAB PO PRN (16:00)
[2021-08-09] MEDS ORDERED: POTASSIUM CHLORIDE 10% ELIXIR 20 MEQ/15 ML UDCUP PO PRN (16:00)
[2021-08-09] MEDS ORDERED: POTASSIUM CHLORIDE 20MEQ/100ML 100 ML IV PRN (16:00)
[2021-08-09] MEDS ORDERED: LIDOCAINE HCL-MPF 1% 2ML VIAL IV PRN (16:00)
[2021-08-09 20:00] VITALS: BP 143/69
[2021-08-10] VITALS: BP 150/73
[2021-08-10 04:00] VITALS: BP 147/71
[2021-08-10 04:38] LABS: POTASSIUM 4.3 mmol/L (3.5-5.1)
[2021-08-10] MEDS: ZOSYN 3.375GM +NS 50ML IV SCH ×2 (05:17→13:25)
[2021-08-10] MEDS: INSULIN HUMULIN R 100 UNIT/ML 3ML SQ SCH ×2 (06:03→11:30)
[2021-08-10 08:13] VITALS: BP 149/73
[2021-08-10] MEDS: METOPROLOL SUCCINATE 50 MG TAB.SR.24H PO SCH (08:46)
[2021-08-10] MEDS: AMLODIPINE 5 MG TAB PO SCH (08:46)
[2021-08-10] MEDS: ENOXAPARIN SODIUM 40 MG/0.4 ML SYRINGE SQ SCH (08:47)
[2021-08-10] MEDS ORDERED: PANTOPRAZOLE 40 MG TAB DR PO SCH (09:00)
[2021-08-10] MEDS ORDERED: AMLODIPINE 5 MG TAB PO SCH (09:00)
[2021-08-10] MEDS ORDERED: METOPROLOL SUCCINATE 50 MG TAB.SR.24H PO SCH (09:00)
[2021-08-10] MEDS ORDERED: ASCORBIC ACID 500 MG TAB PO SCH (09:00)
[2021-08-10 11:25] VITALS: BP 138/74
[2021-08-10 15:39] VITALS: BP 160/64
[2021-08-10] MEDS ORDERED: METR-172 PO (17:11)
[2021-08-10] MEDS ORDERED: LEVO500T90 PO (17:11)
== END 2021-08-10 19:00 | disposition home or self-care (01) ==
LOC: EDH 07:55 → INTOOBSV 13:29 → EDHIP 13:29 → 4CH 22:40
PROVIDERS: ADMIT Internal Medicine; ATTEND Internal Medicine
DX: R10.13 Epigastric pain (principal); R10.12 Left upper quadrant pain; K85.90 Acute pancreatitis without necrosis or infection, unspecified; K57.32 Diverticulitis of large intestine without perforation or abscess without bleeding; K43.9 Ventral hernia without obstruction or gangrene; K76.0 Fatty (change of) liver, not elsewhere classified; I10 Essential (primary) hypertension; E78.5 Hyperlipidemia, unspecified; K21.9 Gastro-esophageal reflux disease without esophagitis; E11.9 Type 2 diabetes mellitus without complications; I42.9 Cardiomyopathy, unspecified; E78.00 Pure hypercholesterolemia, unspecified; R06.02 Shortness of breath; R05.9 Cough, unspecified; E66.9 Obesity, unspecified; Z90.710 Acquired absence of both cervix and uterus; Z79.84 Long term (current) use of oral hypoglycemic drugs; Z79.899 Other long term (current) drug therapy
CPT/HCPCS: 36415 ×3; 71045 ×2; 74177; 74181; 80048; 80053; 80305; 81001; 82150; 82948 ×8; 83690 ×2; 83735 ×2; 84100; 84132; 84443; 84478; 84484; 85025; 85027; 93005; 94640; 94664; 96361 ×2; 96365; 96366; 96372 ×2; 96375 ×2; 96376; 99291; G0378; J1650 ×2; J1940; J2543 ×7; J3475; J7030; J7120; Q9967

== ENCOUNTER 2022-08-01 09:19 | Emergency (ER) | payer MEDICARE ==
[~2022-08-01] VITALS: Ht 152.4 cm; Wt 111.1 kg
[~2022-08-01 09:19] MED LIST changes: -AMLO-257 PO; -ASCO500T92 PO; +ATOR10 PO; +FAMO-136 PO; -GUAI600T50 PO; +LOSA25TA41 PO; +MAAES30 PO; -METH-811 PO; -METO-391 PO; +METO-408 PO
[2022-08-01 10:03] LABS: BASOPHILS % (AUTO) 0.4 % (0.0-5.0); EOSINOPHILS % (AUTO) 0.5 % (0.0-8.0); HEMATOCRIT 40.2 % (36-48); LYMPHOCYTES % (AUTO) 18.6 % (21.0-51.0); MEAN CORPUSCULAR HEMOGLOBIN 28.1 pg (27.0-33.0); MEAN CORPUSCULAR HGB CONC 33.6 g/dL (32.0-36.0); MEAN CORPUSCULAR VOLUME 83.8 fL (79-99); MONOCYTES % (AUTO) 5.2 % (3.0-13.0); PLATELET COUNT (AUTO) 324 K/uL (130-400); RED CELL DISTRIBUTION WIDTH 14.7 % (11.0-15.5); WHITE BLOOD COUNT (AUTO) 10.7 K/uL (4.8-10.8)
[2022-08-01 10:16] LABS: CREATININE 0.7 mg/dL (0.5-1.5); POTASSIUM 4.1 mmol/L (3.5-5.1)
[2022-08-01 10:21] LABS: ALBUMIN 3.5 g/dL (3.5-5.0); MAGNESIUM 1.6 mg/dL (1.80-2.40); TOTAL PROTEIN, SERUM 7.3 g/dL (6.0-8.3)
[2022-08-01 10:23] LABS: B-TYPE NATRIURETIC PEPTIDE 62 pg/mL (0-100)
[2022-08-01 10:43] VITALS: BP 148/64
[2022-08-01 12:19] LABS: APPEARANCE,URINE CLEAR (CLEAR); BILIRUBIN,URINE NEGATIVE (NEGATIVE); COLOR,URINE LIGHT-YELLOW (YELLOW); GLUCOSE, URINE (UA) NEGATIVE (NEGATIVE); KETONES,URINE 20 mg/dL (NEGATIVE); LEUKOCYTE ESTERASE ,URINE 75 Leu/uL (NEGATIVE); NITRATE,URINE NEGATIVE (NEGATIVE); OCCULT BLOOD,URINE NEGATIVE (NEGATIVE); PH,URINE 5.5 (5.0-8.0); PROTEIN,URINE NEGATIVE (NEGATIVE); UROBILINOGEN,URINE 0.2 mg/dL (0.2-1.0)
[2022-08-01 12:27] LABS: AMPHET/METH SCREEN,URINE NEGATIVE (NEGATIVE); BARBITURATE SCREEN, URINE NEGATIVE (NEGATIVE); BENZODIAZEPINES SCREEN,URINE NEGATIVE (NEGATIVE); CANNABINOID SCREEN,URINE NEGATIVE (NEGATIVE); COCAINE SCREEN,URINE NEGATIVE (NEGATIVE); OPIATE SCREEN,URINE NEGATIVE (NEGATIVE); PHENCYCLIDINE SCREEN,URINE NEGATIVE (NEGATIVE)
[2022-08-01 12:32] LABS: BACTERIA,URINE FEW /HPF (None Seen); OTHER CASTS, URINE 1 /LPF (None Seen); SQUAMOUS EPITHELIAL CELL,UR RARE /HPF (0-2)
[2022-08-01] MEDS ORDERED: FLUO10CA21 PO (13:53)
[2022-08-01] MEDS ORDERED: MAGNESIUM OXIDE 400 MG TABLET PO SCH (15:30)
== END 2022-08-01 16:18 | disposition home or self-care (01) ==
LOC: EDH 09:19
DX: F32.3 Major depressive disorder, single episode, severe with psychotic features (principal); E83.42 Hypomagnesemia; E11.9 Type 2 diabetes mellitus without complications; I10 Essential (primary) hypertension; Z90.710 Acquired absence of both cervix and uterus; Z79.899 Other long term (current) drug therapy; Z79.84 Long term (current) use of oral hypoglycemic drugs
CPT/HCPCS: 36415; 71045; 80053; 80305; 81001; 82550; 83735; 83880; 84484; 85025; 87088; 93005